=== PATIENT | male | born 1960 | race Caucasian/White ===

== ENCOUNTER 2019-06-29 09:38 | Outpatient (CLI) | payer OTHER | END 2019-06-29 23:59 | disposition home or self-care (01) | LOC: RAD 09:38 | PROVIDERS: ATTEND Physician Assistant | DX: C22.0 Liver cell carcinoma (principal) ==

== ENCOUNTER → 2019-07-07 | Outpatient (CLI) | payer OTHER | END | disposition home or self-care (01) | LOC: ROC 08:22 | PROVIDERS: ATTEND Radiology Radiation Oncology | DX: C22.0 Liver cell carcinoma (principal) | CPT/HCPCS: 99214; G0463 ==

== ENCOUNTER 2019-07-16 13:50 | Inpatient (IN) | payer OTHER ==
[~2019-07-16] VITALS: Ht 193 cm; Wt 138.4 kg
[2019-07-16] MEDS ORDERED: ONDANSETRON 2MG/ML, 2ML IVPush ONE ×2 (14:30→15:00)
[2019-07-16] MEDS ORDERED: SODIUM CHLORIDE 0.9% 1,000ML IVBOLUS ONE (14:30)
[2019-07-16 14:39] LABS: MEAN CORPUSCULAR HEMOGLOBIN 33.5 pg (27.5-34.5); MEAN CORPUSCULAR HGB CONC 33.4 g/dL (33.2-36.2); MEAN CORPUSCULAR VOLUME 100.3 fL (81-97); PLATELET COUNT 211 x10^3/uL (130-400); RED BLOOD COUNT 5.12 x10^6/uL (4.38-5.82); RED CELL DISTRIBUTION WIDTH 14.3 % (9.4-14.8)
[2019-07-16 14:49] LABS: ALBUMIN 2.2 g/dL (3.4-5.0); ANION GAP 13 mmol/L (5-15); CHLORIDE 96 mmol/L (98-107); CREATININE 1.33 mg/dL (0.7-1.3)
--- NOTE | 2019-07-16 14:53 | NUR ---
PT C/O N/V FOR QUITE A FEW WEEKS. NO BM IN 3 WEEKS. DX METS LIVER CA. CONNECTED TO MONITORING. CALL LIGHT IN REACH.
[2019-07-16] MEDS ORDERED: ONDANSETRON 2MG/ML, 2ML ONE (14:58)
[2019-07-16 15:34] LABS: ALBUMIN 2.2 g/dL (3.4-5.0); BILIRUBIN, DIRECT 2.3 mg/dL (0.1-0.2)
[2019-07-16 15:36] LABS: BILIRUBIN,TOTAL 3.3 mg/dL (0.2-1.0); TOTAL PROTEIN 7.8 g/dL (6.4-8.2)
[2019-07-16 16:00] LABS: BASOPHILS % (AUTO) 0 % (0-1); EOSINOPHILS # (AUTO) 0.06 x10^3/uL (0-0.4); EOSINOPHILS % (AUTO) 0 % (1-7); LYMPHOCYTES # (AUTO) 0.56 x10^3/uL (1-3.4); LYMPHOCYTES % (AUTO) 4 % (22-44); MONOCYTES # (AUTO) 0.82 x10^3/uL (0.2-0.8); MONOCYTES % (AUTO) 6 % (2-9); NEUTROPHILS # (AUTO) 12.25 x10^3/uL (1.8-6.8); NEUTROPHILS % (AUTO) 90 % (42-75)
[2019-07-16 16:01] LABS: MD SCAN
--- NOTE | 2019-07-16 16:18 | NUR ---
ALL RESULTS ARE BACK AT THIS TIME. CHART UP FOR RECHECK.
--- NOTE | 2019-07-16 16:24 | NUR ---
PT RESTING COMFORTABLY ON GURNEY. LOTUS.
[2019-07-16] MEDS ORDERED: SODIUM CHLORIDE 0.9% 1,000 ML IV ONE (16:38)
[2019-07-16] MEDS ORDERED: MORPHINE SULFATE 4 MG/ML, 1ML IVPush PRN (17:00)
[2019-07-16] MEDS ORDERED: ONDANSETRON 2MG/ML, 2ML IVPush PRN ×2 (17:00→19:30)
--- NOTE | 2019-07-16 17:11 | NUR ---
REPORT GIVEN TO MEERA BUCKLEY. PT TO BE GIVEN ENEMA BY FLOOR RN.
[2019-07-16] MEDS ORDERED: GABAPENTIN 300 MG CAPSULE PO PRN (19:30)
[2019-07-16] MEDS ORDERED: PROMETHAZINE 25 MG/ML, 1ML IM PRN (19:30)
[2019-07-16] MEDS ORDERED: morphine SULFATE 10 MG/ML, 1ML IVPush PRN (19:30)
[2019-07-16] MEDS ORDERED: BISACODYL 10 MG SUPP PR PRN (19:30)
[2019-07-16] MEDS ORDERED: DOCUSATE 100 MG CAPSULE PO PRN (19:30)
[2019-07-16] MEDS ORDERED: POLYETHYLENE GLYCOL 17 GM PACKET PO PRN (19:30)
[2019-07-16] MEDS ORDERED: MAGNESIUM SULFATE PMX 2GM/50ML 50 ML IV ONE (19:30)
[2019-07-16] MEDS: LACTULOSE 10 GM/15 ML UDC PO SCH (21:15)
[2019-07-16] MEDS: ENOXAPARIN 40 MG/0.4 ML SQ SCH (21:16)
[2019-07-16] MEDS: FENTANYL 50 MCG PATCH TD SCH (21:16)
[2019-07-16 21:23] VITALS: BP 98/63
[2019-07-16] MEDS: SODIUM CHLORIDE 0.9% 1,000 ML IV SCH (22:06)
[2019-07-17 03:15] VITALS: BP 93/59
[2019-07-17] MEDS ORDERED: SODIUM CHLORIDE 0.9%, 500ML IVBOLUS ONE (04:00)
[2019-07-17 05:36] LABS: BASOPHILS % (AUTO) 0 % (0-1); EOSINOPHILS # (AUTO) 0.15 x10^3/uL (0-0.4); EOSINOPHILS % (AUTO) 2 % (1-7); LYMPHOCYTES # (AUTO) 0.36 x10^3/uL (1-3.4); LYMPHOCYTES % (AUTO) 4 % (22-44); MD NO; MEAN CORPUSCULAR HEMOGLOBIN 34.2 pg (27.5-34.5); MEAN CORPUSCULAR HGB CONC 33.5 g/dL (33.2-36.2); MEAN CORPUSCULAR VOLUME 102.2 fL (81-97); MEAN PLATELET VOLUME 8.1 fL (7.4-10.4); MONOCYTES # (AUTO) 0.84 x10^3/uL (0.2-0.8); MONOCYTES % (AUTO) 9 % (2-9); NEUTROPHILS # (AUTO) 8.24 x10^3/uL (1.8-6.8); NEUTROPHILS % (AUTO) 86 % (42-75); PLATELET COUNT 146 x10^3/uL (130-400); RED BLOOD COUNT 4.38 x10^6/uL (4.38-5.82); RED CELL DISTRIBUTION WIDTH 14.2 % (9.4-14.8)
[2019-07-17 05:38] LABS: ALANINE AMINOTRANSFERASE 74 U/L (12-78); ALBUMIN 1.7 g/dL (3.4-5.0); ANION GAP 9 mmol/L (5-15); CALCIUM 7.9 mg/dL (8.5-10.1); CHLORIDE 101 mmol/L (98-107); CREATININE 1.19 mg/dL (0.7-1.3)
[2019-07-17 05:40] LABS: ALKALINE PHOSPHATASE 219 U/L (45-117); BILIRUBIN,TOTAL 2.8 mg/dL (0.2-1.0)
[2019-07-17] MEDS: SODIUM CHLORIDE 0.9% 1,000 ML IV SCH ×2 (08:00→13:50)
[2019-07-17 08:03] VITALS: BP 100/66
[2019-07-17] MEDS: PANTOPRAZOLE 40 MG IV IVPush SCH (09:04)
[2019-07-17] MEDS: LACTULOSE 10 GM/15 ML UDC PO SCH ×2 (09:04→20:26)
[2019-07-17 14:08] VITALS: BP 94/62
[2019-07-17] MEDS ORDERED: METOCLOPRAMIDE 5 MG/ML, 2ML IVPush PRN (17:00)
[2019-07-17] MEDS: GABAPENTIN 300 MG CAPSULE PO SCH (20:26)
[2019-07-17] MEDS: ENOXAPARIN 40 MG/0.4 ML SQ SCH (20:26)
[2019-07-17 21:41] VITALS: BP 103/67
[2019-07-18 01:04] VITALS: BP 96/62
[2019-07-18] MEDS: SODIUM CHLORIDE 0.9% 1,000 ML IV SCH ×3 (01:06→18:49)
[2019-07-18 05:34] LABS: BASOPHILS # (AUTO) 0.01 x10^3/uL (0-0.1); BASOPHILS % (AUTO) 0 % (0-1); EOSINOPHILS # (AUTO) 0.25 x10^3/uL (0-0.4); EOSINOPHILS % (AUTO) 3 % (1-7); LYMPHOCYTES # (AUTO) 0.37 x10^3/uL (1-3.4); LYMPHOCYTES % (AUTO) 4 % (22-44); MD NO; MEAN CORPUSCULAR HEMOGLOBIN 34.4 pg (27.5-34.5); MEAN CORPUSCULAR HGB CONC 33.3 g/dL (33.2-36.2); MEAN CORPUSCULAR VOLUME 103.1 fL (81-97); MEAN PLATELET VOLUME 8.8 fL (7.4-10.4); MONOCYTES # (AUTO) 1.06 x10^3/uL (0.2-0.8); MONOCYTES % (AUTO) 11 % (2-9); NEUTROPHILS # (AUTO) 8.35 x10^3/uL (1.8-6.8); NEUTROPHILS % (AUTO) 83 % (42-75); PLATELET COUNT 146 x10^3/uL (130-400); RED BLOOD COUNT 4.31 x10^6/uL (4.38-5.82); RED CELL DISTRIBUTION WIDTH 14.6 % (9.4-14.8)
[2019-07-18 05:43] LABS: ALBUMIN 1.8 g/dL (3.4-5.0); ANION GAP 8 mmol/L (5-15); CALCIUM 8.1 mg/dL (8.5-10.1); CHLORIDE 102 mmol/L (98-107)
[2019-07-18 05:47] LABS: ALANINE AMINOTRANSFERASE 74 U/L (12-78); ALKALINE PHOSPHATASE 222 U/L (45-117); BILIRUBIN,TOTAL 2.8 mg/dL (0.2-1.0); CREATININE 0.99 mg/dL (0.7-1.3); TOTAL PROTEIN 6.2 g/dL (6.4-8.2)
[2019-07-18] MEDS: LACTULOSE 20 GM/30 ML UDC PO SCH (09:00)
[2019-07-18 09:02] VITALS: BP 98/63
[2019-07-18] MEDS: PANTOPRAZOLE 40 MG IV IVPush SCH (09:15)
[2019-07-18] MEDS: OXYcodone IR 5MG TABLET PO PRN (09:16)
[2019-07-18] MEDS: GABAPENTIN 300 MG CAPSULE PO SCH ×2 (09:17→20:55)
[2019-07-18] MEDS: LACTULOSE 10 GM/15 ML UDC PO SCH ×2 (09:26→20:55)
[2019-07-18 14:37] VITALS: BP 101/70
[2019-07-18 19:26] VITALS: BP 100/69
[2019-07-18] MEDS: FENTANYL 50 MCG PATCH TD SCH (20:55)
[2019-07-18] MEDS: ENOXAPARIN 40 MG/0.4 ML SQ SCH (20:55)
[2019-07-19 00:35] VITALS: BP 100/67
[2019-07-19] MEDS: SODIUM CHLORIDE 0.9% 1,000 ML IV SCH ×3 (01:30→17:44)
[2019-07-19 05:11] LABS: MEAN CORPUSCULAR HEMOGLOBIN 34.6 pg (27.5-34.5); MEAN CORPUSCULAR HGB CONC 33.9 g/dL (33.2-36.2); MEAN CORPUSCULAR VOLUME 102.1 fL (81-97); MEAN PLATELET VOLUME 8.4 fL (7.4-10.4); PLATELET COUNT 126 x10^3/uL (130-400); RED CELL DISTRIBUTION WIDTH 14.7 % (9.4-14.8)
[2019-07-19 05:22] LABS: CHLORIDE 102 mmol/L (98-107)
[2019-07-19 05:23] LABS: ALBUMIN 1.6 g/dL (3.4-5.0); ANION GAP 8 mmol/L (5-15); CALCIUM 7.6 mg/dL (8.5-10.1)
[2019-07-19 05:52] LABS: ALANINE AMINOTRANSFERASE 79 U/L (12-78); ALKALINE PHOSPHATASE 233 U/L (45-117); BILIRUBIN,TOTAL 2.6 mg/dL (0.2-1.0); CREATININE 0.95 mg/dL (0.7-1.3); TOTAL PROTEIN 5.9 g/dL (6.4-8.2)
[2019-07-19 06:08] LABS: MD YES
[2019-07-19 06:11] LABS: <PLATELET ESTIMATE> ADEQUATE; <PLT MORPHOLOGY> NORMAL PLT MORPH; <RBC MORPHOLOGY> NORMAL; BAND#(MANUAL) 1.03 x10^3/uL; BANDS%(MANUAL) 9 % (0-7); LYMPH#(MANUAL) 0.68 x10^3/uL (1-3.4); LYMPHS% (MANUAL) 6 % (22-44); MONOS#(MANUAL) 0.68 x10^3/uL (0.3-2.7); MONOS% (MANUAL) 6 % (2-9); SEG#(MANUAL) 9.01 x10^3/uL (1.8-6.8); SEGS% (MANUAL) 79 % (42-75)
[2019-07-19 06:13] LABS: BASOPHILS % (AUTO) 0 % (0-1); EOSINOPHILS # (AUTO) 0.12 x10^3/uL (0-0.4); EOSINOPHILS % (AUTO) 1 % (1-7); LYMPHOCYTES # (AUTO) 0.34 x10^3/uL (1-3.4); LYMPHOCYTES % (AUTO) 3 % (22-44); MONOCYTES % (AUTO) 9 % (2-9); NEUTROPHILS # (AUTO) 9.96 x10^3/uL (1.8-6.8); NEUTROPHILS % (AUTO) 87 % (42-75)
[2019-07-19 08:03] VITALS: BP 100/64
[2019-07-19] MEDS: LACTULOSE 20 GM/30 ML UDC PO SCH (08:21)
[2019-07-19] MEDS: PANTOPRAZOLE 40 MG IV IVPush SCH (08:21)
[2019-07-19] MEDS: LACTULOSE 10 GM/15 ML UDC PO SCH ×2 (08:21→20:47)
[2019-07-19] MEDS: GABAPENTIN 300 MG CAPSULE PO SCH ×2 (08:21→20:47)
[2019-07-19] MEDS: OXYcodone IR 5MG TABLET PO PRN (10:39)
[2019-07-19 13:46] VITALS: BP 104/54
[2019-07-19 19:51] VITALS: BP 105/71
[2019-07-19] MEDS: ENOXAPARIN 40 MG/0.4 ML SQ SCH (20:47)
[2019-07-19] MEDS ORDERED: SULFAMETH./TRIMETHOPRIM DS 800MG/160MG TABLET PO SCH (21:00)
[2019-07-20 00:38] VITALS: BP 92/61
[2019-07-20] MEDS: SODIUM CHLORIDE 0.9% 1,000 ML IV SCH ×2 (01:00→09:37)
[2019-07-20 01:03] VITALS: BP 100/67
[2019-07-20 05:19] LABS: BASOPHILS % (AUTO) 0 % (0-1); EOSINOPHILS # (AUTO) 0.14 x10^3/uL (0-0.4); EOSINOPHILS % (AUTO) 1 % (1-7); LYMPHOCYTES # (AUTO) 0.29 x10^3/uL (1-3.4); LYMPHOCYTES % (AUTO) 3 % (22-44); MD NO; MEAN CORPUSCULAR HEMOGLOBIN 34.3 pg (27.5-34.5); MEAN CORPUSCULAR HGB CONC 33.1 g/dL (33.2-36.2); MEAN CORPUSCULAR VOLUME 103.6 fL (81-97); MEAN PLATELET VOLUME 8.3 fL (7.4-10.4); MONOCYTES # (AUTO) 0.89 x10^3/uL (0.2-0.8); MONOCYTES % (AUTO) 8 % (2-9); NEUTROPHILS # (AUTO) 10.33 x10^3/uL (1.8-6.8); NEUTROPHILS % (AUTO) 89 % (42-75); PLATELET COUNT 112 x10^3/uL (130-400); RED BLOOD COUNT 4.18 x10^6/uL (4.38-5.82); RED CELL DISTRIBUTION WIDTH 14.9 % (9.4-14.8)
[2019-07-20 05:30] LABS: ALBUMIN 1.6 g/dL (3.4-5.0); ANION GAP 8 mmol/L (5-15); CALCIUM 7.8 mg/dL (8.5-10.1); CHLORIDE 102 mmol/L (98-107)
[2019-07-20 05:37] LABS: ALANINE AMINOTRANSFERASE 69 U/L (12-78); ALKALINE PHOSPHATASE 228 U/L (45-117); BILIRUBIN,TOTAL 2.6 mg/dL (0.2-1.0); CREATININE 0.83 mg/dL (0.7-1.3)
[2019-07-20 07:42] VITALS: BP 97/60
[2019-07-20] MEDS: LACTULOSE 20 GM/30 ML UDC PO SCH (09:25)
[2019-07-20] MEDS: CIPROFLOXACIN/PMX 400MG/200ML 200 ML IV SCH ×2 (09:37→20:43)
[2019-07-20] MEDS: LACTULOSE 10 GM/15 ML UDC PO SCH ×2 (09:39→19:46)
[2019-07-20] MEDS: GABAPENTIN 300 MG CAPSULE PO SCH ×2 (09:40→19:47)
[2019-07-20] MEDS: CHOLECALCIFEROL 1,000 UNIT TABLET PO SCH (09:40)
[2019-07-20] MEDS: PANTOPRAZOLE 40 MG IV IVPush SCH (09:41)
[2019-07-20] MEDS: OXYcodone IR 5MG TABLET PO PRN ×2 (09:46→13:45)
[2019-07-20] MEDS ORDERED: FENTANYL PF 100 MCG/2ML ONE (10:25)
[2019-07-20] MEDS ORDERED: DEXAMETHASONE 4 MG/ML, 1ML ONE (10:25)
[2019-07-20] MEDS ORDERED: MIDAZOLAM 1 MG/ML, 2ML ONE (10:25)
[2019-07-20] MEDS ORDERED: KETOROLAC 30 MG/1 ML ONE (10:25)
[2019-07-20] MEDS ORDERED: PROPOFOL 10 MG/ML, 20ML ONE (10:25)
[2019-07-20] MEDS ORDERED: ONDANSETRON 2MG/ML, 2ML ONE (10:25)
[2019-07-20] MEDS: METRONIDAZOLE PMX 500MG/100ML 100 ML IV SCH ×2 (10:57→18:28)
[2019-07-20 12:49] VITALS: BP 97/65
[2019-07-20 19:17] VITALS: BP 91/60
[2019-07-20] MEDS: ENOXAPARIN 40 MG/0.4 ML SQ SCH (19:47)
[2019-07-20] MEDS ORDERED: FENTANYL PF 100 MCG/2ML IV PRN (22:00)
[2019-07-20] MEDS ORDERED: MEPERIDINE/PF 25MG/ML,1ML IVPush PRN (22:00)
[2019-07-20] MEDS ORDERED: hydrALAzine 20 MG/ML, 1ML IV PRN (22:00)
[2019-07-20] MEDS ORDERED: HYDROmorphone 2 MG/ML, 1ML IVPush PRN (22:00)
[2019-07-20] MEDS ORDERED: PROMETHAZINE 25 MG/ML, 1ML IV PRN (22:00)
[2019-07-20] MEDS ORDERED: OXYcodone 5 MG/5 ML ORAL.SOL UDC PO PRN (22:00)
[2019-07-20] MEDS ORDERED: ONDANSETRON 2MG/ML, 2ML IV PRN (22:00)
[2019-07-20] MEDS ORDERED: EPHEDRINE 50 MG/ML, 1ML IVPush PRN (22:00)
[2019-07-20] MEDS ORDERED: LABETALOL 5MG/ML, 20ML IV PRN (22:00)
[2019-07-20] MEDS ORDERED: BUPIVACAINE/PF 0.5% INFIL ONE (22:41)
[2019-07-21] MEDS: FENTANYL 50 MCG PATCH TD SCH (00:18)
[2019-07-21] MEDS: VANCOMYCIN 2,000 MG in SODIUM CHLORIDE 0.9% 500 ML IV SCH ×3 (01:16→14:37)
[2019-07-21 01:24] VITALS: BP 95/59
[2019-07-21] MEDS: METRONIDAZOLE PMX 500MG/100ML 100 ML IV SCH ×3 (03:17→19:53)
[2019-07-21] MEDS: SODIUM CHLORIDE 0.9% 1,000 ML IV SCH ×3 (06:21→22:02)
[2019-07-21 07:44] VITALS: BP 90/60
[2019-07-21] MEDS: LACTULOSE 10 GM/15 ML UDC PO SCH ×2 (08:11→21:44)
[2019-07-21] MEDS: LACTULOSE 20 GM/30 ML UDC PO SCH (08:23)
[2019-07-21] MEDS: CHOLECALCIFEROL 1,000 UNIT TABLET PO SCH (08:24)
[2019-07-21] MEDS: GABAPENTIN 300 MG CAPSULE PO SCH ×2 (08:24→21:44)
[2019-07-21] MEDS: PANTOPRAZOLE 40 MG IV IVPush SCH (08:24)
[2019-07-21] MEDS: CIPROFLOXACIN/PMX 400MG/200ML 200 ML IV SCH ×2 (09:29→21:44)
[2019-07-21] MEDS: OXYcodone IR 5MG TABLET PO PRN (10:13)
[2019-07-21 13:50] VITALS: BP 110/74
[2019-07-21 18:32] VITALS: BP 90/50
[2019-07-21] MEDS: ENOXAPARIN 40 MG/0.4 ML SQ SCH (21:44)
[2019-07-22] MEDS: VANCOMYCIN 2,000 MG in SODIUM CHLORIDE 0.9% 500 ML IV SCH (02:23)
[2019-07-22 02:42] VITALS: BP 97/66
[2019-07-22] MEDS: METRONIDAZOLE PMX 500MG/100ML 100 ML IV SCH ×3 (04:29→22:30)
[2019-07-22 05:25] LABS: BASOPHILS # (AUTO) 0.01 x10^3/uL (0-0.1); BASOPHILS % (AUTO) 0 % (0-1); EOSINOPHILS # (AUTO) 0.19 x10^3/uL (0-0.4); EOSINOPHILS % (AUTO) 2 % (1-7); LYMPHOCYTES # (AUTO) 0.28 x10^3/uL (1-3.4); LYMPHOCYTES % (AUTO) 3 % (22-44); MD NO; MEAN CORPUSCULAR HEMOGLOBIN 34.4 pg (27.5-34.5); MEAN CORPUSCULAR HGB CONC 33.3 g/dL (33.2-36.2); MEAN CORPUSCULAR VOLUME 103.4 fL (81-97); MEAN PLATELET VOLUME 8.3 fL (7.4-10.4); MONOCYTES # (AUTO) 0.69 x10^3/uL (0.2-0.8); MONOCYTES % (AUTO) 8 % (2-9); NEUTROPHILS % (AUTO) 87 % (42-75); PLATELET COUNT 107 x10^3/uL (130-400); RED BLOOD COUNT 3.65 x10^6/uL (4.38-5.82); RED CELL DISTRIBUTION WIDTH 15.2 % (9.4-14.8)
[2019-07-22 05:29] LABS: ALBUMIN 1.4 g/dL (3.4-5.0); ANION GAP 9 mmol/L (5-15); CALCIUM 7.8 mg/dL (8.5-10.1); CHLORIDE 102 mmol/L (98-107)
[2019-07-22 05:34] LABS: ALANINE AMINOTRANSFERASE 58 U/L (12-78); ALKALINE PHOSPHATASE 199 U/L (45-117); BILIRUBIN,TOTAL 2.1 mg/dL (0.2-1.0); CREATININE 1.24 mg/dL (0.7-1.3); TOTAL PROTEIN 5.1 g/dL (6.4-8.2)
[2019-07-22 07:24] VITALS: BP 87/54
[2019-07-22 07:36] VITALS: BP 112/75
[2019-07-22] MEDS: LACTULOSE 20 GM/30 ML UDC PO SCH (08:11)
[2019-07-22] MEDS: LACTULOSE 10 GM/15 ML UDC PO SCH ×2 (08:11→21:00)
[2019-07-22] MEDS: PANTOPRAZOLE 40 MG IV IVPush SCH (08:12)
[2019-07-22] MEDS: GABAPENTIN 300 MG CAPSULE PO SCH ×2 (08:12→21:16)
[2019-07-22] MEDS: OXYcodone IR 5MG TABLET PO PRN ×3 (08:12→21:15)
[2019-07-22] MEDS: SODIUM CHLORIDE 0.9% 1,000 ML IV SCH ×3 (08:12→21:16)
[2019-07-22] MEDS: CHOLECALCIFEROL 1,000 UNIT TABLET PO SCH (08:15)
[2019-07-22] MEDS: CIPROFLOXACIN/PMX 400MG/200ML 200 ML IV SCH ×2 (09:11→21:15)
[2019-07-22] MEDS ORDERED: OXYC5TAB3 PO (09:44)
[2019-07-22] MEDS: LINEZOLID PMX 600MG/300ML 300 ML IV SCH (10:24)
[2019-07-22 15:21] VITALS: BP_SYST 102; BP_SYST 93; BP_SYST 95; BP_DIAS 63; BP_DIAS 71
[2019-07-22 19:55] VITALS: BP 105/68
[2019-07-22] MEDS: FENTANYL 50 MCG PATCH TD SCH (21:13)
[2019-07-22] MEDS: ENOXAPARIN 40 MG/0.4 ML SQ SCH (21:16)
[2019-07-23] MEDS: LINEZOLID PMX 600MG/300ML 300 ML IV SCH ×2 (00:04→11:08)
[2019-07-23 02:32] VITALS: BP 99/66
[2019-07-23 05:10] LABS: MEAN CORPUSCULAR HEMOGLOBIN 34.7 pg (27.5-34.5); MEAN CORPUSCULAR HGB CONC 34.1 g/dL (33.2-36.2); MEAN CORPUSCULAR VOLUME 101.6 fL (81-97); MEAN PLATELET VOLUME 8.2 fL (7.4-10.4); PLATELET COUNT 100 x10^3/uL (130-400); RED BLOOD COUNT 3.76 x10^6/uL (4.38-5.82); RED CELL DISTRIBUTION WIDTH 15.4 % (9.4-14.8)
[2019-07-23 05:17] LABS: CHLORIDE 101 mmol/L (98-107)
[2019-07-23 05:25] LABS: ALANINE AMINOTRANSFERASE 61 U/L (12-78); ALBUMIN 1.5 g/dL (3.4-5.0); ALKALINE PHOSPHATASE 229 U/L (45-117); ANION GAP 11 mmol/L (5-15); BILIRUBIN,TOTAL 2.5 mg/dL (0.2-1.0); CREATININE 1.29 mg/dL (0.7-1.3); TOTAL PROTEIN 5.4 g/dL (6.4-8.2)
[2019-07-23 06:12] LABS: MD YES
[2019-07-23 06:15] LABS: BAND#(MANUAL) 0.49 x10^3/uL; BANDS%(MANUAL) 6 % (0-7); EOS#(MANUAL) 0.33 x10^3/uL (0.0-0.4); EOS% (MANUAL) 4 % (1-7); LYMPH#(MANUAL) 0.08 x10^3/uL (1-3.4); LYMPHS% (MANUAL) 1 % (22-44); MONOS#(MANUAL) 0.33 x10^3/uL (0.3-2.7); MONOS% (MANUAL) 4 % (2-9); SEG#(MANUAL) 6.97 x10^3/uL (1.8-6.8); SEGS% (MANUAL) 85 % (42-75)
[2019-07-23 06:16] LABS: <PLATELET ESTIMATE> DECREASED; ANISOCYTOSIS 1+
[2019-07-23] MEDS: METRONIDAZOLE PMX 500MG/100ML 100 ML IV SCH ×3 (06:16→23:23)
[2019-07-23 06:17] LABS: <PLT MORPHOLOGY> NORMAL PLT MORPH
[2019-07-23 08:39] VITALS: BP 92/62
[2019-07-23] MEDS: PANTOPRAZOLE 40 MG IV IVPush SCH (08:44)
[2019-07-23] MEDS: LACTULOSE 20 GM/30 ML UDC PO SCH (08:44)
[2019-07-23] MEDS: CHOLECALCIFEROL 1,000 UNIT TABLET PO SCH (08:44)
[2019-07-23] MEDS: CIPROFLOXACIN/PMX 400MG/200ML 200 ML IV SCH ×2 (08:44→22:00)
[2019-07-23] MEDS: LACTULOSE 10 GM/15 ML UDC PO SCH ×2 (08:44→20:56)
[2019-07-23] MEDS: GABAPENTIN 300 MG CAPSULE PO SCH ×2 (08:44→21:59)
[2019-07-23] MEDS: OXYcodone IR 5MG TABLET PO PRN (09:44)
[2019-07-23] MEDS: SODIUM CHLORIDE 0.9% 1,000 ML IV SCH (15:17)
[2019-07-23 20:28] VITALS: BP 100/69
[2019-07-23] MEDS: ENOXAPARIN 40 MG/0.4 ML SQ SCH (22:00)
[2019-07-24] MEDS: LINEZOLID PMX 600MG/300ML 300 ML IV SCH ×2 (00:43→12:30)
[2019-07-24] MEDS: SODIUM CHLORIDE 0.9% 1,000 ML IV SCH ×4 (00:48→21:21)
[2019-07-24 03:06] VITALS: BP 104/72
[2019-07-24 04:08] LABS: ANION GAP 11 mmol/L (5-15); CALCIUM 7.9 mg/dL (8.5-10.1); CHLORIDE 102 mmol/L (98-107); CREATININE 1.35 mg/dL (0.7-1.3)
[2019-07-24 04:18] LABS: BASOPHILS # (AUTO) 0.02 x10^3/uL (0-0.1); BASOPHILS % (AUTO) 0 % (0-1); EOSINOPHILS # (AUTO) 0.17 x10^3/uL (0-0.4); EOSINOPHILS % (AUTO) 2 % (1-7); LYMPHOCYTES # (AUTO) 0.27 x10^3/uL (1-3.4); LYMPHOCYTES % (AUTO) 3 % (22-44); MD NO; MEAN CORPUSCULAR HEMOGLOBIN 34.5 pg (27.5-34.5); MEAN CORPUSCULAR HGB CONC 33.3 g/dL (33.2-36.2); MEAN CORPUSCULAR VOLUME 103.8 fL (81-97); MEAN PLATELET VOLUME 8.8 fL (7.4-10.4); MONOCYTES # (AUTO) 0.83 x10^3/uL (0.2-0.8); MONOCYTES % (AUTO) 10 % (2-9); NEUTROPHILS # (AUTO) 7.01 x10^3/uL (1.8-6.8); NEUTROPHILS % (AUTO) 84 % (42-75); PLATELET COUNT 100 x10^3/uL (130-400); RED BLOOD COUNT 3.81 x10^6/uL (4.38-5.82)
[2019-07-24] MEDS: METRONIDAZOLE PMX 500MG/100ML 100 ML IV SCH ×3 (06:26→22:01)
[2019-07-24] MEDS: PANTOPROZOLE 40MG TABLET PO SCH (06:26)
[2019-07-24 07:27] VITALS: BP 107/62
[2019-07-24] MEDS: CHOLECALCIFEROL 1,000 UNIT TABLET PO SCH (08:58)
[2019-07-24] MEDS: GABAPENTIN 300 MG CAPSULE PO SCH ×2 (08:58→20:13)
[2019-07-24] MEDS: LACTULOSE 10 GM/15 ML UDC PO SCH (08:58)
[2019-07-24] MEDS: LACTULOSE 20 GM/30 ML UDC PO SCH (08:58)
[2019-07-24] MEDS: CIPROFLOXACIN/PMX 400MG/200ML 200 ML IV SCH ×2 (11:20→23:16)
[2019-07-24 12:40] VITALS: BP 109/70
[2019-07-24] MEDS: OXYcodone IR 5MG TABLET PO PRN ×2 (14:29→23:16)
[2019-07-24 18:55] VITALS: BP 111/73
[2019-07-24] MEDS: ENOXAPARIN 40 MG/0.4 ML SQ SCH (20:14)
[2019-07-24] MEDS: FENTANYL 50 MCG PATCH TD SCH (20:14)
[2019-07-25] MEDS: LINEZOLID PMX 600MG/300ML 300 ML IV SCH ×2 (00:41→13:01)
[2019-07-25 01:25] VITALS: BP 96/67
[2019-07-25 04:22] LABS: BASOPHILS % (AUTO) 0 % (0-1); EOSINOPHILS # (AUTO) 0.22 x10^3/uL (0-0.4); EOSINOPHILS % (AUTO) 2 % (1-7); LYMPHOCYTES # (AUTO) 0.22 x10^3/uL (1-3.4); LYMPHOCYTES % (AUTO) 2 % (22-44); MD NO; MEAN CORPUSCULAR HEMOGLOBIN 34.5 pg (27.5-34.5); MEAN CORPUSCULAR HGB CONC 33.5 g/dL (33.2-36.2); MEAN CORPUSCULAR VOLUME 102.9 fL (81-97); MEAN PLATELET VOLUME 8.2 fL (7.4-10.4); MONOCYTES # (AUTO) 0.82 x10^3/uL (0.2-0.8); MONOCYTES % (AUTO) 8 % (2-9); NEUTROPHILS % (AUTO) 87 % (42-75); PLATELET COUNT 110 x10^3/uL (130-400); RED BLOOD COUNT 3.81 x10^6/uL (4.38-5.82); RED CELL DISTRIBUTION WIDTH 15.5 % (9.4-14.8)
[2019-07-25 04:32] LABS: ALBUMIN 1.5 g/dL (3.4-5.0); ANION GAP 10 mmol/L (5-15); CALCIUM 7.8 mg/dL (8.5-10.1); CHLORIDE 99 mmol/L (98-107)
[2019-07-25 04:36] LABS: ALANINE AMINOTRANSFERASE 55 U/L (12-78); ALKALINE PHOSPHATASE 246 U/L (45-117); BILIRUBIN,TOTAL 2.8 mg/dL (0.2-1.0); TOTAL PROTEIN 5.5 g/dL (6.4-8.2)
[2019-07-25] MEDS: METRONIDAZOLE PMX 500MG/100ML 100 ML IV SCH ×3 (06:16→23:10)
[2019-07-25] MEDS: PANTOPROZOLE 40MG TABLET PO SCH (06:16)
[2019-07-25 08:10] VITALS: BP 112/77
[2019-07-25] MEDS: LACTULOSE 20 GM/30 ML UDC PO SCH (09:09)
[2019-07-25] MEDS: CHOLECALCIFEROL 1,000 UNIT TABLET PO SCH (09:21)
[2019-07-25] MEDS: GABAPENTIN 300 MG CAPSULE PO SCH ×2 (09:21→19:44)
[2019-07-25] MEDS: ACETAMINOPHEN 325 MG TABLET PO SCH ×3 (11:03→22:30)
[2019-07-25] MEDS: CIPROFLOXACIN/PMX 400MG/200ML 200 ML IV SCH (11:04)
[2019-07-25] MEDS: OXYcodone IR 5MG TABLET PO PRN ×2 (12:19→19:44)
[2019-07-25] MEDS: HEPARIN 5,000 UNITS/ML, 1ML SQ SCH (16:56)
[2019-07-25 20:05] VITALS: BP 104/69
[2019-07-25] MEDS: SODIUM CHLORIDE 0.9% 1,000 ML IV SCH (20:05)
[2019-07-26] MEDS: HEPARIN 5,000 UNITS/ML, 1ML SQ SCH ×4 (00:27→23:36)
[2019-07-26 01:52] VITALS: BP 109/72
[2019-07-26] MEDS: ACETAMINOPHEN 325 MG TABLET PO SCH ×4 (04:30→19:52)
[2019-07-26] MEDS: PANTOPROZOLE 40MG TABLET PO SCH (05:59)
[2019-07-26 07:22] VITALS: BP 98/63
[2019-07-26] MEDS ORDERED: LACTULOSE 20 GM/30 ML UDC PO PRN (08:30)
[2019-07-26] MEDS: METRONIDAZOLE PMX 500MG/100ML 100 ML IV SCH ×3 (08:30→23:36)
[2019-07-26] MEDS: GABAPENTIN 300 MG CAPSULE PO SCH ×2 (08:35→19:51)
[2019-07-26] MEDS: LACTOBACILLUS CHEW TABLET PO SCH ×3 (08:35→19:51)
[2019-07-26] MEDS: CHOLECALCIFEROL 1,000 UNIT TABLET PO SCH (08:35)
[2019-07-26] MEDS: OXYcodone IR 5MG TABLET PO PRN ×2 (09:27→13:42)
[2019-07-26 10:57] LABS: MEAN CORPUSCULAR HEMOGLOBIN 34.5 pg (27.5-34.5); MEAN CORPUSCULAR HGB CONC 33.9 g/dL (33.2-36.2); MEAN CORPUSCULAR VOLUME 101.7 fL (81-97); MEAN PLATELET VOLUME 7.6 fL (7.4-10.4); PLATELET COUNT 114 x10^3/uL (130-400); RED BLOOD COUNT 4.02 x10^6/uL (4.38-5.82); RED CELL DISTRIBUTION WIDTH 15.9 % (9.4-14.8)
[2019-07-26 11:07] LABS: ANION GAP 12 mmol/L (5-15); CALCIUM 7.5 mg/dL (8.5-10.1); CHLORIDE 100 mmol/L (98-107)
[2019-07-26 11:08] LABS: CREATININE 1.34 mg/dL (0.7-1.3)
[2019-07-26 11:16] LABS: MD YES
[2019-07-26 11:18] LABS: BAND#(MANUAL) 1.35 x10^3/uL; BANDS%(MANUAL) 13 % (0-7); MONOS#(MANUAL) 0.62 x10^3/uL (0.3-2.7); MONOS% (MANUAL) 6 % (2-9); MYELOCYTES% (MANUAL) 1 % (0-0); SEG#(MANUAL) 8.32 x10^3/uL (1.8-6.8); SEGS% (MANUAL) 80 % (42-75)
[2019-07-26 11:19] LABS: <PLATELET ESTIMATE> DECREASED; <PLT MORPHOLOGY> NORMAL PLT MORPH; ANISOCYTOSIS 1+
[2019-07-26] MEDS: SODIUM CHLORIDE 0.9% 1,000 ML IV SCH ×2 (11:22→23:36)
[2019-07-26 11:23] LABS: CLOSTRIDIUM DIFFICILE ANTIGEN POSITIVE; CLOSTRIDIUM DIFFICILE TOXIN NEGATIVE (Negative)
[2019-07-26 13:32] VITALS: BP 100/66
[2019-07-26] MEDS: VANCOMYCIN 50 MG/ML ORAL SUSP PO SCH ×2 (15:43→19:51)
[2019-07-26 19:50] VITALS: BP 96/64
[2019-07-26] MEDS: FENTANYL 50 MCG PATCH TD SCH (19:52)
[2019-07-27 01:32] VITALS: BP 108/70
[2019-07-27] MEDS: VANCOMYCIN 50 MG/ML ORAL SUSP PO SCH ×4 (01:42→20:27)
[2019-07-27] MEDS: ACETAMINOPHEN 325 MG TABLET PO SCH ×4 (01:43→20:27)
[2019-07-27 04:58] LABS: BASOPHILS % (AUTO) 0 % (0-1); EOSINOPHILS % (AUTO) 1 % (1-7); LYMPHOCYTES # (AUTO) 0.28 x10^3/uL (1-3.4); LYMPHOCYTES % (AUTO) 3 % (22-44); MD NO; MEAN CORPUSCULAR HEMOGLOBIN 34.5 pg (27.5-34.5); MEAN CORPUSCULAR HGB CONC 33.6 g/dL (33.2-36.2); MEAN CORPUSCULAR VOLUME 102.6 fL (81-97); MEAN PLATELET VOLUME 7.3 fL (7.4-10.4); MONOCYTES # (AUTO) 0.74 x10^3/uL (0.2-0.8); MONOCYTES % (AUTO) 7 % (2-9); NEUTROPHILS # (AUTO) 9.47 x10^3/uL (1.8-6.8); NEUTROPHILS % (AUTO) 89 % (42-75); PLATELET COUNT 110 x10^3/uL (130-400); RED BLOOD COUNT 3.96 x10^6/uL (4.38-5.82); RED CELL DISTRIBUTION WIDTH 15.9 % (9.4-14.8)
[2019-07-27 05:08] LABS: ANION GAP 9 mmol/L (5-15); CHLORIDE 97 mmol/L (98-107); CREATININE 1.49 mg/dL (0.7-1.3)
[2019-07-27] MEDS: PANTOPROZOLE 40MG TABLET PO SCH (05:56)
[2019-07-27] MEDS: METRONIDAZOLE PMX 500MG/100ML 100 ML IV SCH ×3 (05:57→23:08)
[2019-07-27 07:40] VITALS: BP 105/72
[2019-07-27] MEDS: CHOLECALCIFEROL 1,000 UNIT TABLET PO SCH (09:36)
[2019-07-27] MEDS: GABAPENTIN 300 MG CAPSULE PO SCH ×2 (09:36→20:26)
[2019-07-27] MEDS: HEPARIN 5,000 UNITS/ML, 1ML SQ SCH ×3 (09:37→23:08)
[2019-07-27] MEDS: LACTOBACILLUS CHEW TABLET PO SCH ×3 (09:37→20:27)
[2019-07-27] MEDS: OXYcodone IR 5MG TABLET PO PRN (11:34)
[2019-07-27 15:00] VITALS: BP 108/77
[2019-07-27] MEDS: SODIUM CHLORIDE 0.9% 1,000 ML IV SCH ×2 (16:09→20:26)
[2019-07-27 19:48] VITALS: BP 115/79
[2019-07-28] MEDS: VANCOMYCIN 50 MG/ML ORAL SUSP PO SCH ×4 (01:55→20:39)
[2019-07-28 02:30] VITALS: BP 103/64
[2019-07-28] MEDS: ACETAMINOPHEN 325 MG TABLET PO SCH ×4 (04:30→20:40)
[2019-07-28] MEDS: PANTOPROZOLE 40MG TABLET PO SCH (06:26)
[2019-07-28] MEDS: METRONIDAZOLE PMX 500MG/100ML 100 ML IV SCH ×3 (07:25→23:03)
[2019-07-28 07:50] VITALS: BP 98/62
[2019-07-28] MEDS: CHOLECALCIFEROL 1,000 UNIT TABLET PO SCH (10:33)
[2019-07-28] MEDS: LACTOBACILLUS CHEW TABLET PO SCH ×3 (10:33→20:39)
[2019-07-28] MEDS: GABAPENTIN 300 MG CAPSULE PO SCH ×2 (10:33→20:40)
[2019-07-28] MEDS: HEPARIN 5,000 UNITS/ML, 1ML SQ SCH ×3 (10:33→23:03)
[2019-07-28] MEDS: OXYcodone IR 5MG TABLET PO PRN ×2 (12:51→15:48)
[2019-07-28 12:57] VITALS: BP 104/70
[2019-07-28] MEDS: SODIUM CHLORIDE 0.9% 1,000 ML IV SCH (15:58)
[2019-07-28 18:40] VITALS: BP 104/69
[2019-07-28] MEDS: FENTANYL 50 MCG PATCH TD SCH (20:40)
[2019-07-29 02:05] VITALS: BP 104/72
[2019-07-29] MEDS: ACETAMINOPHEN 325 MG TABLET PO SCH ×4 (02:13→22:29)
[2019-07-29] MEDS: VANCOMYCIN 50 MG/ML ORAL SUSP PO SCH ×4 (02:13→22:04)
[2019-07-29 04:49] LABS: ANION GAP 11 mmol/L (5-15); CALCIUM 7.4 mg/dL (8.5-10.1); CHLORIDE 101 mmol/L (98-107); CREATININE 1.49 mg/dL (0.7-1.3)
[2019-07-29] MEDS: PANTOPROZOLE 40MG TABLET PO SCH (06:21)
[2019-07-29 08:00] VITALS: BP 98/61
[2019-07-29] MEDS: METRONIDAZOLE PMX 500MG/100ML 100 ML IV SCH (09:17)
[2019-07-29] MEDS: CHOLECALCIFEROL 1,000 UNIT TABLET PO SCH (09:18)
[2019-07-29] MEDS: SODIUM CHLORIDE 0.9% 1,000 ML IV SCH (09:18)
[2019-07-29] MEDS: GABAPENTIN 300 MG CAPSULE PO SCH ×2 (09:18→21:48)
[2019-07-29] MEDS: LACTOBACILLUS CHEW TABLET PO SCH ×3 (09:18→21:47)
[2019-07-29] MEDS: HEPARIN 5,000 UNITS/ML, 1ML SQ SCH ×2 (09:19→16:55)
[2019-07-29] MEDS: OXYcodone IR 5MG TABLET PO PRN ×2 (10:35→16:58)
[2019-07-29 13:20] VITALS: BP 95/63
[2019-07-29] MEDS: metroNIDAZOLE 500 MG TABLET PO SCH ×2 (16:55→21:48)
[2019-07-29 19:43] VITALS: BP 100/68
[2019-07-30 00:20] VITALS: BP 103/64
[2019-07-30] MEDS: SODIUM CHLORIDE 0.9% 1,000 ML IV SCH ×2 (01:58→21:59)
[2019-07-30] MEDS: HEPARIN 5,000 UNITS/ML, 1ML SQ SCH ×3 (01:59→17:49)
[2019-07-30] MEDS: OXYcodone IR 5MG TABLET PO PRN ×3 (02:06→17:48)
[2019-07-30] MEDS: ACETAMINOPHEN 325 MG TABLET PO SCH ×4 (04:16→22:30)
[2019-07-30] MEDS: PANTOPROZOLE 40MG TABLET PO SCH (04:36)
[2019-07-30] MEDS: VANCOMYCIN 50 MG/ML ORAL SUSP PO SCH ×4 (04:36→22:35)
[2019-07-30] MEDS: GABAPENTIN 300 MG CAPSULE PO SCH ×2 (09:20→21:44)
[2019-07-30] MEDS: metroNIDAZOLE 500 MG TABLET PO SCH ×3 (09:20→21:58)
[2019-07-30] MEDS: CHOLECALCIFEROL 1,000 UNIT TABLET PO SCH (09:20)
[2019-07-30] MEDS: LACTOBACILLUS CHEW TABLET PO SCH ×3 (09:20→21:44)
[2019-07-30] MEDS: DIPHENOXYLATE/ATROPINE TABLET PO PRN ×2 (09:26→17:55)
[2019-07-30 13:58] VITALS: BP 96/61
[2019-07-30 18:53] VITALS: BP 105/65
[2019-07-30] MEDS: FENTANYL 50 MCG PATCH TD SCH (21:45)
[2019-07-31 01:50] VITALS: BP 102/70
[2019-07-31] MEDS: HEPARIN 5,000 UNITS/ML, 1ML SQ SCH ×3 (02:36→17:00)
[2019-07-31] MEDS: VANCOMYCIN 50 MG/ML ORAL SUSP PO SCH ×4 (03:57→22:26)
[2019-07-31] MEDS: ACETAMINOPHEN 325 MG TABLET PO SCH ×4 (04:30→22:27)
[2019-07-31 05:15] LABS: INTERNATIONAL NORMALIZED RATIO 2.03 (0.93-1.1); PROTHROMBIN TIME 20.7 Seconds (9.6-11.5)
[2019-07-31 05:17] LABS: CHLORIDE 99 mmol/L (98-107)
[2019-07-31 05:22] LABS: ALANINE AMINOTRANSFERASE 108 U/L (12-78); ALBUMIN 1.8 g/dL (3.4-5.0); ALKALINE PHOSPHATASE 252 U/L (45-117); ANION GAP 10 mmol/L (5-15); BILIRUBIN, DIRECT 4.2 mg/dL (0.1-0.2); BILIRUBIN,INDIRECT 1.4 mg/dL (0.0-2.0); BILIRUBIN,TOTAL 5.6 mg/dL (0.2-1.0); CALCIUM 8.3 mg/dL (8.5-10.1); CREATININE 1.76 mg/dL (0.7-1.3); TOTAL PROTEIN 6.7 g/dL (6.4-8.2)
[2019-07-31 05:24] LABS: MEAN CORPUSCULAR HEMOGLOBIN 34.4 pg (27.5-34.5); MEAN CORPUSCULAR HGB CONC 33.4 g/dL (33.2-36.2); MEAN CORPUSCULAR VOLUME 102.9 fL (81-97); MEAN PLATELET VOLUME 7.7 fL (7.4-10.4); PLATELET COUNT 84 x10^3/uL (130-400); RED BLOOD COUNT 4.45 x10^6/uL (4.38-5.82); RED CELL DISTRIBUTION WIDTH 16.7 % (9.4-14.8)
[2019-07-31 05:48] LABS: BASOPHILS % (AUTO) 0 % (0-1); EOSINOPHILS # (AUTO) 0.02 x10^3/uL (0-0.4); EOSINOPHILS % (AUTO) 0 % (1-7); LYMPHOCYTES # (AUTO) 0.21 x10^3/uL (1-3.4); LYMPHOCYTES % (AUTO) 2 % (22-44); MD SCAN; MONOCYTES # (AUTO) 0.49 x10^3/uL (0.2-0.8); MONOCYTES % (AUTO) 4 % (2-9); NEUTROPHILS # (AUTO) 11.34 x10^3/uL (1.8-6.8); NEUTROPHILS % (AUTO) 94 % (42-75)
[2019-07-31] MEDS: PANTOPROZOLE 40MG TABLET PO SCH (06:26)
[2019-07-31 08:43] VITALS: BP 99/56
[2019-07-31] MEDS: CHOLECALCIFEROL 1,000 UNIT TABLET PO SCH (08:52)
[2019-07-31] MEDS: metroNIDAZOLE 500 MG TABLET PO SCH ×3 (08:52→21:00)
[2019-07-31] MEDS: LACTOBACILLUS CHEW TABLET PO SCH ×4 (08:52→21:00)
[2019-07-31] MEDS: DIPHENOXYLATE/ATROPINE TABLET PO PRN (08:52)
[2019-07-31] MEDS: GABAPENTIN 300 MG CAPSULE PO SCH ×4 (08:52→21:00)
[2019-07-31] MEDS: OXYcodone IR 5MG TABLET PO PRN (08:53)
[2019-07-31] MEDS: OXYcodone 5 MG/5 ML ORAL.SOL UDC PO PRN (14:24)
[2019-07-31 14:26] VITALS: BP 99/60
[2019-07-31] MEDS: SODIUM CHLORIDE 0.9% 1,000 ML IV SCH (14:26)
[2019-07-31 19:41] VITALS: BP 106/65
[2019-08-01 00:31] VITALS: BP 97/64
[2019-08-01] MEDS: OXYcodone 5 MG/5 ML ORAL.SOL UDC PO PRN (00:35)
[2019-08-01] MEDS: HEPARIN 5,000 UNITS/ML, 1ML SQ SCH (02:29)
[2019-08-01] MEDS: ACETAMINOPHEN 325 MG TABLET PO SCH ×3 (04:30→11:03)
[2019-08-01] MEDS: VANCOMYCIN 50 MG/ML ORAL SUSP PO SCH ×2 (04:47→10:00)
[2019-08-01] MEDS ORDERED: PANTOPRAZOLE GRAN. PKT 40 MG PO SCH (06:00)
[2019-08-01] MEDS: SODIUM CHLORIDE 0.9% 1,000 ML IV SCH (06:14)
[2019-08-01 08:07] VITALS: BP 102/64
[2019-08-01] MEDS: metroNIDAZOLE 500 MG TABLET PO SCH (10:35)
[2019-08-01] MEDS: GABAPENTIN 300 MG CAPSULE PO SCH (10:35)
[2019-08-01] MEDS: CHOLECALCIFEROL 1,000 UNIT TABLET PO SCH (10:35)
[2019-08-01] MEDS: LACTOBACILLUS CHEW TABLET PO SCH (10:35)
[2019-08-01 10:43] LABS: MEAN CORPUSCULAR HEMOGLOBIN 34.9 pg (27.5-34.5); MEAN CORPUSCULAR HGB CONC 33.3 g/dL (33.2-36.2); MEAN CORPUSCULAR VOLUME 104.6 fL (81-97); MEAN PLATELET VOLUME 7.7 fL (7.4-10.4); PLATELET COUNT 85 x10^3/uL (130-400); RED BLOOD COUNT 4.17 x10^6/uL (4.38-5.82); RED CELL DISTRIBUTION WIDTH 17.2 % (9.4-14.8)
[2019-08-01 10:48] LABS: ANION GAP 12 mmol/L (5-15); CALCIUM 7.6 mg/dL (8.5-10.1); CHLORIDE 103 mmol/L (98-107); CREATININE 1.81 mg/dL (0.7-1.3)
[2019-08-01 11:39] LABS: BASOPHILS % (AUTO) 0 % (0-1); EOSINOPHILS # (AUTO) 0.05 x10^3/uL (0-0.4); EOSINOPHILS % (AUTO) 0 % (1-7); LYMPHOCYTES % (AUTO) 2 % (22-44); MD SCAN; MONOCYTES # (AUTO) 0.62 x10^3/uL (0.2-0.8); MONOCYTES % (AUTO) 5 % (2-9); NEUTROPHILS # (AUTO) 12.49 x10^3/uL (1.8-6.8); NEUTROPHILS % (AUTO) 94 % (42-75)
[2019-08-01 14:08] VITALS: BP 110/63
[2019-08-01] MEDS ORDERED: PROCHLORPERAZINE 5 MG/ML, 2ML IVPush PRN (15:00)
[2019-08-01] MEDS ORDERED: SCOPOLAMINE PATCH, 1.5MG PATCH.TD72 TD SCH (15:00)
[2019-08-01] MEDS ORDERED: ATROPINE OPHTH SOLN 1%, 5ML BC PRN (15:00)
[2019-08-01] MEDS ORDERED: MORPHINE SULFATE 4 MG/ML, 1ML IVPush PRN ×2 (15:00)
[2019-08-01] MEDS ORDERED: LORazepam 2 MG/ML, 1ML IVPush PRN (15:00)
[2019-08-02] MEDS: FENTANYL 50 MCG PATCH TD SCH (02:01)
== END 2019-08-02 13:00 | disposition expired | DRG 579 ==
LOC: ED 17:25 → 4NW 17:28 → 5SO 22:01 → 4NW 07-17 09:35 → 4NE 08-02 11:35
PROVIDERS: ADMIT Internal Medicine; ATTEND Hospitalist
PROC: 0KBR0ZZ Excision of Left Upper Leg Muscle, Open Approach (ICD-10-PCS; principal; 2019-07-20 20:00)
DX: L02.416 Cutaneous abscess of left lower limb (principal); N17.0 Acute kidney failure with tubular necrosis; A04.72 Enterocolitis due to Clostridium difficile, not specified as recurrent; C77.9 Secondary and unspecified malignant neoplasm of lymph node, unspecified; C78.00 Secondary malignant neoplasm of unspecified lung; E87.0 Hyperosmolality and hypernatremia; E87.1 Hypo-osmolality and hyponatremia; I96 Gangrene, not elsewhere classified; T78.2XXA Anaphylactic shock, unspecified, initial encounter; C22.0 Liver cell carcinoma; Z88.0 Allergy status to penicillin; D69.6 Thrombocytopenia, unspecified; D75.89 Other specified diseases of blood and blood-forming organs; E55.9 Vitamin D deficiency, unspecified; G89.3 Neoplasm related pain (acute) (chronic); K27.9 Peptic ulcer, site unspecified, unspecified as acute or chronic, without hemorrhage or perforation; K57.90 Diverticulosis of intestine, part unspecified, without perforation or abscess without bleeding; K59.00 Constipation, unspecified; K74.60 Unspecified cirrhosis of liver; Z51.5 Encounter for palliative care; Z82.49 Family history of ischemic heart disease and other diseases of the circulatory system; Z85.05 Personal history of malignant neoplasm of liver; Z83.3 Family history of diabetes mellitus; Z87.11 Personal history of peptic ulcer disease; Z87.891 Personal history of nicotine dependence; Z92.21 Personal history of antineoplastic chemotherapy; Z92.3 Personal history of irradiation
CPT/HCPCS: 36415; 74021; 96361; 96374; 99285; J3370; J3490; S0020; 76705; 77336; 77387; 77412; 80048; 80053; 80076; 82040; 82105; 82247; 82248; 82306; 82607; 83690; 83735; 84100; 84443; 85025; 85610; 85730; 87070; 87075; 87076; 87077; 87205; 87324; 93005; 93970; 97162; G0378; J0171; J0744; J1100; J1644; J1650; J1885; J2020; J2250; J2270; J2405; J2704; J3010; C9113; J2060; J2765; J3475; J7030; J7040